=== PATIENT | male | born 2000 | race Two or more races ===

== ENCOUNTER 2023-10-23 23:52 | Emergency (ER) | payer MEDICAID, OTHER ==
[~2023-10-23] VITALS: Ht 188 cm; Wt 83.2 kg
[2023-10-24 00:09] VITALS: BP 141/85; PULSE 77; RESP 16; O2SAT 98
[2023-10-24] MEDS ORDERED: IBUP-1456 PO (02:18)
[2023-10-24] MEDS: KETOROLAC TROMETH 60MG/2ML VIAL IM ONE (02:22)
== END 2023-10-24 02:28 | disposition home or self-care (01) ==
LOC: ER 23:52
DX: S63.693A Other sprain of left middle finger, initial encounter (principal); Z79.899 Other long term (current) drug therapy; X58.XXXA Exposure to other specified factors, initial encounter; Y93.89 Activity, other specified; Y92.89 Other specified places as the place of occurrence of the external cause; Y99.8 Other external cause status
CPT/HCPCS: 29130; 96372; 99283; J1885